=== PATIENT | male | born 1995 | race Caucasian/White ===

== ENCOUNTER 2019-03-28 13:50 | Emergency (ER) | payer BC ==
--- OUTSIDE RECORDS SUMMARY | 2019-03-28 14:02 | XMS REPORT | Continuity of Care Document ---
:1995 External Reference #:[id number] Author Name Jese Dee MD Address [facility] [place] [address] Care Team Providers Name Role Phone Neno Angela M.D. Care Team Information Manager Environmental Affairs [phone] Problems Active Problems Provider Date Chronic ulcerative pancolitis Jese Dee MD Onset: 08/12/2018 Social History Type Date Description Comments Sex Unknown Tobacco Use Start: Unknown Light tobacco smoker (10 or fewer cigarettes/day) Smoking Status Reviewed: 03/03/19 Light tobacco smoker (10 or fewer cigarettes/day) Allergies, Adverse Reactions, Alerts Description No Known Drug Allergies Medications Active Medications SIG Qnty Indications Ordering Date Provider Remicade 400mg iv every 8 Jese D. 03/03/2019 100mg weeks, please check MD Leila Solution Rec cbc, cmp every other infusion Prednisone 2 po q day x 3 days, QS Jese D. 03/03/2019 10mg then 1.5 po qday x 3 MD Leila Tablets days, then 1 po q day x 3 days, then 0.5 po qday x 3 days, then stop Ibu take 1 tablet by Unknown 800mg Tablets mouth three times a day if needed for pain maxim... (Refer To Prescription Notes). Budesonide 3 by mouth every day 270caps Jese D. 3mg Caps MD DR Ap Dee Mesalamine 2 by mouth twice a 360tabs Jese D. 1.2gm day MD Leila Tablets Advil PM Unknown 200-38mg Tablets Immunizations Description No Information Available Vital Signs Date Vital Result Comment 03/03/2019 2:01pm Height 69 inches 5'9" Weight 142.00 lb BP Systolic 123 mmHg BP Diastolic 74 mmHg Heart Rate 103 /min BMI (Body Mass Index) 21.0 kg/m2 08/12/2018 1:11pm Height 69 inches 5'9" Weight 153.00 lb BP Systolic 120 mmHg BP Diastolic 83 mmHg Heart Rate 100 /min BMI (Body Mass Index) 22.6 kg/m2 Results Test Date Facility Test Result H/L Range Note CBC Auto Diff 09/18/2018 [facility] [place] Blood Count 10.2 10^3/uL Normal 3.5- 10.8 Red Blood Count 4.36 10^6/uL Normal 4.18-5.48 Hemoglobin 12.0 g/dL Low 14.0-18.0 Hematocrit 36 % Low 42-52 Mean Corpuscular Volume 83 fL Normal 80-94 Mean Corpuscular Hemoglobin 28 pg Normal 27-31 Mean Corpuscular HGB Conc 33 g/dL Normal 31-36 Red Cell Distribution Width 17 % High 10.5-15 Platelet Count 317 10^3/uL Normal 150-450 Mean Platelet Volume 7.7 fL Normal 7.4-10.4 Abs Neutrophils 8.5 10^3/uL High 1.5-7.7 Abs Lymphocytes 1.3 10^3/uL Normal 1.0-4.8 Abs Monocytes 0.3 10^3/uL Normal 0-0.8 Abs Eosinophils 0.0 10^3/uL Normal 0-0.6 Abs Basophils 0.0 10^3/uL Normal 0-0.2 Abs Nucleated RBC 0.0 10^3/uL Granulocyte % 83.2 % Lymphocyte % 12.6 % Monocyte % 3.3 % Eosinophil % 0.5 % Basophil % 0.4 % Nucleated Red Blood Cells % 0.0 Comp Metabolic Panel 09/18/2018 [facility] [place] Sodium 136 mmol/L Normal 135-145 Potassium 4.2 mmol/L Normal 3.5-5.0 Chloride 103 mmol/L Normal 101-111 Co2 Carbon Dioxide 26 mmol/L Normal 22-32 Anion Gap 7 mmol/L Normal 2-11 Glucose 112 mg/dL High 70-100 Blood Urea Nitrogen 19 mg/dL Normal 6-24 Creatinine 0.85 mg/dL Normal 0.67-1.17 BUN/Creatinine Ratio 22.4 High 8-20 Calcium 9.6 mg/dL Normal 8.6-10.3 Total Protein 7.6 g/dL Normal 6.4-8.9 Albumin 4.5 g/dL Normal 3.2-5.2 Globulin 3.1 g/dL Normal 2-4 Albumin/Globulin Ratio 1.5 Normal 1-3 Total Bilirubin 0.60 mg/dL Normal 0.2-1.0 Alkaline Phosphatase 77 U/L Normal 34-104 Ast 15 U/L Normal 13-39 Egfr Non- 113.8 >60 Egfr 137.7 >60 1 Alt 13 U/L Normal 7-52 Laboratory test finding 09/18/2018 [facility] Reactive Protein 1.45 mg/L Normal <8.01 1 Because ethnic data is not always readily available, this report includes an eGFR for both -Americans and non- Americans. The National Kidney Disease Education Program (NKDEP) does not endorse the use of the MDRD equation for patients that are not between the ages of 18 and 70, are , have extremes of body size, muscle mass, or nutritional status, or are non- or non-. According to the National Kidney Foundation, irrespective of diagnosis, the stage of the disease is based on the level of kidney function: Stage Description GFR(mL/min/1.73 m(2)) 1 Kidney damage with normal or decreased GFR 90 2 Kidney damage with mild decrease in GFR 60-89 3 Moderate decrease in GFR 30-59 4 Severe decrease in GFR 15-29 5 Kidney failure <15 (or dialysis) Procedures Description No Information Available Medical Devices Description No Information Available Encounters Description No Information Available Assessments Date Code Description Provider 03/03/2019 K51.00 Ulcerative (chronic) pancolitis without Jese Dee MD complications Plan of Treatment 03/03/2019 - Jese Dee MDK51.00 Ulcerative (chronic) pancolitis without complicationsComments:I had a very long discussion with the patient regarding his ulcerative colitis. He is currently flaring on Remicade. He is on above maximum doses of 15 mg/kg every 7 weeks. I am concerned that he has developed antibodies to the Remicade and we need to switch to a different medication. He also remains on budesonide and mesalamine and despite this triple concoction he is flaring. At this point I am going to start him on a prednisone taper over the next couple of weeks. Additionally we had a discussion regarding switching to a different biologic 1 of the other antitumor necrosis factor antibodies, or Entyvio or Xeljanz. He would like to try to Entyvio. We will work on the prior authorization Functional Status Description No Information Available Mental Status Description No Information Available Referrals Description No Information Available
[2019-03-28] MEDS ORDERED: Ondansetron INJ* 2 MG/ML VIAL IV ONE (14:49)
[2019-03-28] MEDS ORDERED: Ketorolac INJ* 30 MG/ML 1 ML VIAL IV ONE (14:49)
[2019-03-28] MEDS ORDERED: NS 0.9% 1000 ML** 1,000 ML IV ONE (14:50)
[2019-03-28 15:17] LABS: ABS Basophils 0.1 10^3/ul (0-0.2); ABS Lymphocytes 1.2 10^3/ul (1.0-4.8); ABS Monocytes 0.8 10^3/ul (0-0.8); ABS Neutrophils 11.8 10^3/ul (1.5-7.7); Eosinophil % 0.2 %; Hematocrit 38 % (42-52); Hemoglobin 12.7 g/dL (14.0-18.0); Lymphocyte % 8.4 %; Mean Corpuscular HGB Conc 33 g/dL (31-36); Mean Corpuscular Hemoglobin 29 pg (27-31); Mean Corpuscular Volume 88 fL (80-94); Mean Platelet Volume 7.5 fL (7.4-10.4); Platelet Count 367 10^3/uL (150-450); Red Blood Count 4.37 10^6 /uL (4.18-5.48); Red Cell Distribution Width 15 % (10-15); White Blood Count 13.8 10^3/uL (3.5-10.8)
[2019-03-28 15:36] LABS: Albumin 4.3 g/dL (3.2-5.2); Albumin/Globulin Ratio 1.2 (1-3); C Reactive Protein 19.43 mg/L (<8.01); Calcium 9.8 mg/dL (8.6-10.3); EGFR African American 114.1 (>60); EGFR Non-African American 94.3 (>60); Globulin 3.7 g/dL (2-4); Potassium 3.1 mmol/L (3.5-5.0); Total Bilirubin 0.7 mg/dL (0.2-1.0)
[2019-03-28 16:11] LABS: Urine Appearance Clear; Urine Color Yellow
[2019-03-28 16:12] LABS: Urine Bilirubin Negative (Negative); Urine Blood 3+ (Negative); Urine Glucose Negative (Negative); Urine Ketones 1+ (Negative); Urine Nitrite Negative (Negative); Urine Protein 1+(30 mg/dL) (Negative); Urine Specific Gravity 1.005 (1.010-1.030); Urine Urobilinogen Negative (Negative)
[2019-03-28 16:15] LABS: Urine Bacteria 1+ (Absent); Urine Red Blood Cell 3+(>10/hpf) (Absent); Urine Squamous Epithelial Cell Present (Absent); Urine White Blood Cell 1+(6-10/hpf) (Absent)
[2019-03-28 16:52] VITALS: BP 104/67
--- NOTE | 2019-03-28 17:07 | ED ---
Abdominal Pain/Male - HPI Summary HPI Summary: This patient is a 23-year-old male presenting to the ED with L sided flank pain acute onset just 2 hours ago. Hx of kidney stone. - History of Current Complaint Chief Complaint: EDFlankPain Stated Complaint: POSS KIDNEY STONE/VOMITING BLOOD PER PT Time Seen by Provider: 03/28/19 14:27 Hx Obtained From: Patient Onset/Duration: Sudden Onset Timing: Constant Severity Initially: Severe Severity Currently: Severe Pain Intensity: 0 Pain Scale Used: 0-10 Numeric Location: Flank Radiates: Yes Radiates to: LLQ Character: Sharp, Cramping Aggravating Factor(s): Nothing Alleviating Factor(s): Nothing Associated Signs And Symptoms: Positive: Negative. Negative: Constipation, Blood in Stool, Urinary Symptoms, Decreased Appetite, Vomiting, Diarrhea, Penile Discharge - Risk Factors Testicular Torsion: Negative Cardiac Risk Factors: Negative - Allergies/Home Medications Allergies/Adverse Reactions: Allergies Allergy/AdvReac Type Severity Reaction Status Date / Time ENVIRONMENTAL Allergy SNEEZING Uncoded 03/28/19 13:55 AND COUGHING PMH/Surg Hx/FS Hx/Imm Hx Previously Healthy: Yes Endocrine/Hematology History: Reports: Hx Anemia - iron supplements Denies: Hx Diabetes Cardiovascular History: Denies: Hx Hypertension GI History: Reports: Hx Irritable Bowel - possible, Other GI Disorders - ulcerative colitis, diarrhea History: Denies: Hx Dialysis, Hx Renal Disease Musculoskeletal History: Denies: Hx Rheumatoid Arthritis, Hx Osteoporosis Sensory History: Reports: Hx Contacts or Glasses - GLASSES Denies: Hx Hearing Aid Opthamlomology History: Reports: Hx Contacts or Glasses - GLASSES Psychiatric History: Reports: Hx Attention Deficit Hyperactivity Disorder - Surgical History Surgery Procedure, Year, and Place: TUBES A CHILD-[place]. TONSILLECTOMY, [place]. 2013 colonoscopy, [facility] Hx Anesthesia Reactions: No - Immunization History Hx Pertussis Vaccination: No Immunizations Up to Date: Yes Infectious Disease History: No Infectious Disease History: Denies: Hx Clostridium Difficile, Hx Hepatitis, Hx Human Immunodeficiency Virus (HIV), Hx of Known/Suspected MRSA, Hx Shingles, Hx Tuberculosis, History Other Infectious Disease, Traveled Outside the [place] in Last 30 Days - Family History Known Family History: Positive: Other - Denies FHx malignant hyperthermia or anesthesia reaction - Social History Occupation: Employed Full-time Lives: With Family Alcohol Use: None Hx Substance Use: No Substance Use Type: Reports: None Substance Use Comment - Amount & Last Used: occassionally Hx Tobacco Use: Yes Smoking Status (MU): Current Some Day Smoker Type: eCigarettes Amount Used/How Often: 1-2 cig day Have You Smoked in the Last Year: Yes Review of Systems Negative: Fever, Chills, Fatigue, Skin Diaphoresis Negative: Palpitations, Chest Pain Negative: Shortness Of Breath, Cough Positive: Abdominal Pain - LLQ, Nausea. Negative: Vomiting, Diarrhea Genitourinary: Negative Positive: no symptoms reported, see HPI, flank pain - left flank Negative: Arthralgia, Myalgia Skin: Negative Neurological: Negative All Other Systems Reviewed And Are Negative: Yes Physical Exam Triage Information Reviewed: Yes Vital Signs On Initial Exam: Initial Vitals Temp Pulse Resp BP Pulse Ox 97.8 F 85 20 116/73 100 03/28/19 13:51 03/28/19 13:51 03/28/19 13:51 03/28/19 13:51 03/28/19 13:51 Vital Signs Reviewed: Yes Appearance: Positive: Well-Appearing, Well-Nourished Skin: Positive: Skin Color Reflects Adequate Perfusion Head/Face: Positive: Normal Head/Face Inspection Eyes: Positive: EOMI, ALDO, Conjunctiva Clear Neck: Positive: Supple, No Lymphadenopathy Respiratory/Lung Sounds: Positive: Clear to Auscultation, Breath Sounds Present Cardiovascular: Positive: RRR, Pulses are Symmetrical in both Upper and Lower Extremities Abdomen Description: Positive: CVA Tenderness (L) Bowel Sounds: Positive: Present Musculoskeletal: Positive: Strength/ROM Intact Neurological: Positive: Sensory/Motor Intact, Alert, Oriented to Person Place, Time, Speech Normal Psychiatric: Positive: Normal, Affect/Mood Appropriate AVPU Assessment: Alert Diagnostics - Vital Signs Vital Signs Temp Pulse Resp BP Pulse Ox 03/28/19 16:52 99.5 F 87 16 104/67 99 03/28/19 16:47 104/67 03/28/19 16:19 78 98 03/28/19 15:39 70 20 90/70 100 03/28/19 15:00 72 100 03/28/19 14:10 24 03/28/19 14:08 21 145/76 03/28/19 13:51 97.8 F 85 20 116/73 100 - Laboratory Lab Results: Lab Results 03/28/19 03/28/19 03/28/19 Range/Units 15:09 15:09 15:09 WBC 13.8 H (3.5-10.8) 10^3/uL RBC 4.37 (4.18-5.48) 10^6 /uL Hgb 12.7 L (14.0-18.0) g/dL Hct 38 L (42-52) % MCV 88 (80-94) fL MCH 29 (27-31) pg MCHC 33 (31-36) g/dL RDW 15 (10-15) % Plt Count 367 (150-450) 10^3/uL MPV 7.5 (7.4-10.4) fL Neut % (Auto) 85.2 % Lymph % (Auto) 8.4 % [place] % (Auto) 5.8 % Eos % (Auto) 0.2 % Baso % (Auto) 0.4 % Absolute Neuts (auto) 11.8 H (1.5-7.7) 10^3/ul Absolute Lymphs (auto) 1.2 (1.0-4.8) 10^3/ul Absolute Monos (auto) 0.8 (0-0.8) 10^3/ul Absolute Eos (auto) 0.0 (0-0.6) 10^3/ul Absolute Basos (auto) 0.1 (0-0.2) 10^3/ul Absolute Nucleated RBC 0.0 10^3/ul Nucleated RBC % 0.0 Sodium 137 (135-145) mmol/L Potassium 3.1 L (3.5-5.0) mmol/L Chloride 104 (101-111) mmol/L Carbon Dioxide 21 L (22-32) mmol/L Anion Gap 12 H (2-11) mmol/L BUN 14 (6-24) mg/dL Creatinine 1.00 (0.67-1.17) mg/dL Est GFR ( Amer) 114.1 (>60) Est GFR (Non-Af Amer) 94.3 (>60) BUN/Creatinine Ratio 14.0 (8-20) Glucose 85 (70-100) mg/dL Lactic Acid 2.3 H* (0.5-2.0) mmol/L Calcium 9.8 (8.6-10.3) mg/dL Total Bilirubin 0.70 (0.2-1.0) mg/dL AST 14 (13-39) U/L ALT 17 (7-52) U/L Alkaline Phosphatase 81 (34-104) U/L C-Reactive Protein 19.43 H (<8.01) mg/L Total Protein 8.0 (6.4-8.9) g/dL Albumin 4.3 (3.2-5.2) g/dL Globulin 3.7 (2-4) g/dL Albumin/Globulin Ratio 1.2 (1-3) Lipase 23 (11.0-82.0) U/L Urine Color Urine Appearance Urine pH (5-9) Ur Specific Garrett (1.010-1.030) Urine Protein (Negative) Urine Ketones (Negative) Urine Blood (Negative) Urine Nitrate (Negative) Urine Bilirubin (Negative) Urine Urobilinogen (Negative) Ur Leukocyte Esterase (Negative) Urine WBC (Auto) (Absent) Urine RBC (Auto) (Absent) Ur Squamous Epith Cells (Absent) Urine Bacteria (Absent) Urine Glucose (Negative) 03/28/19 Range/Units 15:58 WBC (3.5-10.8) 10^3/uL RBC (4.18-5.48) 10^6 /uL Hgb (14.0-18.0) g/dL Hct (42-52) % MCV (80-94) fL MCH (27-31) pg MCHC (31-36) g/dL RDW (10-15) % Plt Count (150-450) 10^3/uL MPV (7.4-10.4) fL Neut % (Auto) % Lymph % (Auto) % [place] % (Auto) % Eos % (Auto) % Baso % (Auto) % Absolute Neuts (auto) (1.5-7.7) 10^3/ul Absolute Lymphs (auto) (1.0-4.8) 10^3/ul Absolute Monos (auto) (0-0.8) 10^3/ul Absolute Eos (auto) (0-0.6) 10^3/ul Absolute Basos (auto) (0-0.2) 10^3/ul Absolute Nucleated RBC 10^3/ul Nucleated RBC % Sodium (135-145) mmol/L Potassium (3.5-5.0) mmol/L Chloride (101-111) mmol/L Carbon Dioxide (22-32) mmol/L Anion Gap (2-11) mmol/L BUN (6-24) mg/dL Creatinine (0.67-1.17) mg/dL Est GFR ( Amer) (>60) Est GFR (Non-Af Amer) (>60) BUN/Creatinine Ratio (8-20) Glucose (70-100) mg/dL Lactic Acid (0.5-2.0) mmol/L Calcium (8.6-10.3) mg/dL Total Bilirubin (0.2-1.0) mg/dL AST (13-39) U/L ALT (7-52) U/L Alkaline Phosphatase (34-104) U/L C-Reactive Protein (<8.01) mg/L Total Protein (6.4-8.9) g/dL Albumin (3.2-5.2) g/dL Globulin (2-4) g/dL Albumin/Globulin Ratio (1-3) Lipase (11.0-82.0) U/L Urine Color Yellow Urine Appearance Clear Urine pH 6 (5-9) Ur Specific Garrett 1.005 L (1.010-1.030) Urine Protein 1+(30 mg/dl) A (Negative) Urine Ketones 1+ A (Negative) Urine Blood 3+ A (Negative) Urine Nitrate Negative (Negative) Urine Bilirubin Negative (Negative) Urine Urobilinogen Negative (Negative) Ur Leukocyte Esterase 1+ A (Negative) Urine WBC (Auto) 1+(6-10/hpf) A (Absent) Urine RBC (Auto) 3+(>10/hpf) A (Absent) Ur Squamous Epith Cells Present A (Absent) Urine Bacteria 1+ A (Absent) Urine Glucose Negative (Negative) Result Diagrams: 03/28/19 15:09 03/28/19 15:09 Lab Statement: Any lab studies that have been ordered have been reviewed, and results considered in the medical decision making process. Abdominal Pain Male Course/Dx - Diagnoses Differential Diagnosis/HQI/PQRI: Ureteral Stone Provider Diagnoses: Kidney stone on left side Discharge ED - Discharge Plan Condition: Stable Disposition: HOME Prescriptions: Ondansetron ODT TAB* [Zofran 4 MG Odt TAB*] 4 mg PO Q6H PRN #12 tab.odt MDD 4 PRN Reason: Nausea Sulfamethox/Trimethoprim DS* [Bactrim DS 800/160 TAB*] 1 tab PO BID #6 tab MDD 2 traMADol TAB* [Ultram*] 50 mg PO Q8H PRN #6 tab MDD 3 PRN Reason: Pain Patient Education Materials: Kidney Stones (ED) Referrals: Lorenzo Carvajal MD [Medical Doctor] - Neno Angela MD [Primary Care Provider] - Additional Instructions: Strain your urine to assure you have passed the stone If you're not having pain, you have likely passed the stone Zofran has been given as prescription, use this 4 times daily as needed for nausea Bactrim twice daily x 3 days Tramadol as needed for pain - Billing Disposition and Condition Condition: STABLE Disposition: Home
== END 2019-03-28 16:52 | disposition home or self-care (01) ==
LOC: ED 13:50
DX: N13.2 Hydronephrosis with renal and ureteral calculous obstruction (principal); Z87.442 Personal history of urinary calculi; R11.0 Nausea; D64.9 Anemia, unspecified; Z72.0 Tobacco use
CPT/HCPCS: 36415; 74176; 80053; 81003; 81015; 83605; 83690; 85025; 86140; 87086; 96361; 96374; 96375; 99283; J1885; J2405

== ENCOUNTER 2023-07-20 15:46 | Inpatient (IN) ==
[2023-07-20 17:30] LABS: ALT 13 U/L (7-52); AST 16 U/L (13-39); Acetaminophen < 15 mcg/mL; Albumin 4.2 g/dL (3.2-5.2); Albumin/Globulin Ratio 1.2 (1-3); Alcohol, S < 13 mg/dL (<13); Alkaline Phosphatase 78 U/L (35-149); Anion Gap 9 mmol/L (2-16); Blood Urea Nitrogen 21 mg/dL (6-24); CO2 Carbon Dioxide 24 mmol/L (22-32); Calcium 8.9 mg/dL (8.6-10.3); Chloride 105 mmol/L (101-111); Globulin 3.5 g/dL (2-4); Glucose 74 mg/dL (70-100); Salicylate < 2.50 mg/dL (<30); Sodium 138 mmol/L (135-145); Total Bilirubin 0.6 mg/dL (0.2-1.0); Total Protein 7.7 g/dL (6.4-8.9); eGFR CKD-EPI 125.2 (>60)
[2023-07-20 17:40] LABS: ABS Monocytes 0.5 10^3/uL (0.0-1.1); ABS Neutrophils 3.4 10^3/uL (1.5-7.6); ABS Nucleated RBC 0.01 10^3/ul; Acanthocytes 1+; Eosinophil % 0.5 %; Hematocrit 31.8 % (38-53); Hemoglobin 10.3 g/dL (13.2-16.3); Hypochromasia 2+; Lymphocyte % 20.3 %; Mean Corpuscular Hgb Conc 32.3 g/dL (31-36); Mean Corpuscular Volume 74.3 fL (80-97); Mean Platelet Volume 6.7 fL (7.5-11.2); Microcytosis 2+; Nucleated Red Blood Cells % 0.2 %/100WBC (0.0-0.8); Platelet Count 520 10^3/uL (150-450); Red Blood Count 4.29 10^6/uL (4.06-5.63); Red Cell Distribution Width 25.7 % (12-17); Target Cells 1+; Tear Drop Cells 1+
[2023-07-20 17:44] LABS: TSH Ultra Thyroid Stim Horm 0.91 mcIU/mL (0.34-5.60)
[2023-07-20 19:24] LABS: Urine Appearance Extra Turbid; Urine Bilirubin Negative (Negative); Urine Blood 3+ (Negative); Urine Glucose Negative (Negative); Urine Ketones Negative (Negative); Urine Nitrite Negative (Negative); Urine Protein Trace (Negative); Urine Urobilinogen Negative (Negative)
[2023-07-20 19:27] LABS: Urine Bacteria 3+ /HPF (Absent); Urine Red Blood Cell 3+(>10/hpf) /HPF (0-Trace); Urine White Blood Cell 3+(>20/hpf) /HPF (0-Trace)
[2023-07-20 19:28] LABS: Urine Color Dark-Yellow
[2023-07-20 19:37] LABS: Urine Benzodiazepine Screen None Detected (None Detect); Urine Cannabinoids Screen None Detected (None Detect); Urine Opiates Screen None Detected (None Detect)
[2023-07-20] MEDS ORDERED: Al Hydrox/Mg Hydrox/Simet LIQ 30 ML UDC PO PRN (22:46)
[2023-07-21 07:26] LABS: Cholesterol 109 mg/dL; LDL Cholesterol 54 mg/dL; Triglycerides 118 mg/dL
[2023-07-21] MEDS: Vitamin THERAPEUTIC TAB PO SCH (08:59)
[2023-07-21 15:09] LABS: Ferritin 8.7 ng/mL (24-336)
[2023-07-21 15:39] LABS: % Iron Saturation 5 % (15-55); .Transferrin 291 mg/dL (203-362); Iron < 20 ug/dL (50-212); Total Iron Binding Capacity 407 mcg/dL (250-450); Unsaturated Iron Binding 387 ug/dL
[2023-07-21] MEDS: Nicotine GUM 2MG FRUIT FLAVOR PO PRN (20:17)
[2023-07-25] MEDS ORDERED: Lorazepam PYXIS KEY PRN (18:16)
[2023-07-25] MEDS ORDERED: chlorproMAZINE 25 MG/ML 2 ML (50 MG) IM ONE ×2 (18:16→19:00)
[2023-07-25] MEDS: chlorproMAZINE 25 MG/ML 2 ML (50 MG) IM ONE (18:27)
[2023-07-25] MEDS: LORazepam 2 mg VIAL 1 ml IM ONE (18:27)
[2023-07-25] MEDS: LORazepam 2 mg VIAL 1 ml ONE (18:54)
[2023-07-25] MEDS: chlorproMAZINE 25 MG/ML 2 ML (50 MG) ONE (19:38)
[2023-07-29 12:07] LABS: Vitamin D Total 25(OH) 15.2 ng/mL (20-50)
[2023-07-30 08:35] LABS: ABS Basophils 0.1 10^3/uL (0.0-0.1); ABS Eosinophils 0.1 10^3/uL (0.0-0.5); ABS Lymphocytes 1.4 10^3/uL (1.0-4.8); ABS Monocytes 0.6 10^3/uL (0.0-1.1); Eosinophil % 1.5 %; Hematocrit 31.3 % (38-53); Hemoglobin 10.3 g/dL (13.2-16.3); Lymphocyte % 17.2 %; Mean Corpuscular Hemoglobin 24.3 pg (27-33); Mean Corpuscular Hgb Conc 32.7 g/dL (31-36); Mean Corpuscular Volume 74.2 fL (80-97); Mean Platelet Volume 6.9 fL (7.5-11.2); Platelet Count 623 10^3/uL (150-450); Red Blood Count 4.22 10^6/uL (4.06-5.63); Red Cell Distribution Width 23.6 % (12-17); White Blood Count 8.2 10^3/uL (3.6-10.2)
[2023-08-02] MEDS ORDERED: Lactase Enzyme (NF) 3,000 UNIT TAB PO PRN ×2 (22:04→22:05)
[2023-08-05] MEDS ORDERED: OLANZapine IM (NF) 10 MG VIAL IM PRN (12:00)
[2023-08-05 13:51] LABS: ABS Eosinophils 0.1 10^3/uL (0.0-0.5); ABS Lymphocytes 1.2 10^3/uL (1.0-4.8); ABS Monocytes 0.3 10^3/uL (0.0-1.1); ABS Neutrophils 7.1 10^3/uL (1.5-7.6); Eosinophil % 0.8 %; Hematocrit 30.1 % (38-53); Hemoglobin 9.7 g/dL (13.2-16.3); Lymphocyte % 13.4 %; Mean Corpuscular Hgb Conc 32.4 g/dL (31-36); Mean Corpuscular Volume 73.9 fL (80-97); Mean Platelet Volume 6.6 fL (7.5-11.2); Platelet Count 634 10^3/uL (150-450); Red Blood Count 4.07 10^6/uL (4.06-5.63); Red Cell Distribution Width 23.2 % (12-17); White Blood Count 8.7 10^3/uL (3.6-10.2)
[2023-08-05 13:59] LABS: Albumin 3.9 g/dL (3.2-5.2); Albumin/Globulin Ratio 1.2 (1-3); Creatinine, Serum 0.76 mg/dL (0.67-1.17); Globulin 3.3 g/dL (2-4); Total Bilirubin 0.3 mg/dL (0.2-1.0); Total Protein 7.2 g/dL (6.4-8.9); eGFR CKD-EPI 127.1 (>60)
[2023-08-14 09:03] LABS: Albumin 3.7 g/dL (3.2-5.2); Albumin/Globulin Ratio 1.3 (1-3); CRP High Sensitivity 10.77 mg/L (<2.00); Creatinine, Serum 0.78 mg/dL (0.67-1.17); Globulin 2.9 g/dL (2-4); Potassium 4.7 mmol/L (3.5-5.0); Total Bilirubin 0.3 mg/dL (0.2-1.0); Total Protein 6.6 g/dL (6.4-8.9); eGFR CKD-EPI 126.1 (>60)
[2023-08-14 09:10] LABS: ABS Eosinophils 0.1 10^3/uL (0.0-0.5); ABS Monocytes 0.5 10^3/uL (0.0-1.1); ABS Neutrophils 3.9 10^3/uL (1.5-7.6); Eosinophil % 2.3 %; Hematocrit 27.9 % (38-53); Hemoglobin 9.2 g/dL (13.2-16.3); Lymphocyte % 18.2 %; Mean Corpuscular Hemoglobin 24.3 pg (27-33); Mean Corpuscular Volume 73.7 fL (80-97); Mean Platelet Volume 6.7 fL (7.5-11.2); Nucleated Red Blood Cells % 0.1 %/100WBC (0.0-0.8); Platelet Count 516 10^3/uL (150-450); Red Blood Count 3.79 10^6/uL (4.06-5.63); Red Cell Distribution Width 21.1 % (12-17); White Blood Count 5.6 10^3/uL (3.6-10.2)
[2023-08-15] MEDS: Lithium Carbonate ER 450mg TAB PO SCH (21:17)
[2023-08-16] MEDS: OLANZapine IM (NF) 10 MG VIAL IM ONE (09:48)
[2023-08-21 07:59] LABS: ABS Basophils 0.1 10^3/uL (0.0-0.1); ABS Eosinophils 0.2 10^3/uL (0.0-0.5); ABS Lymphocytes 1.3 10^3/uL (1.0-4.8); ABS Monocytes 0.7 10^3/uL (0.0-1.1); ABS Neutrophils 6.4 10^3/uL (1.5-7.6); Eosinophil % 2.4 %; Hemoglobin 9.6 g/dL (13.2-16.3); Lymphocyte % 14.8 %; Mean Corpuscular Hemoglobin 24.2 pg (27-33); Mean Corpuscular Volume 75.6 fL (80-97); Mean Platelet Volume 6.6 fL (7.5-11.2); Platelet Count 454 10^3/uL (150-450); Red Blood Count 3.96 10^6/uL (4.06-5.63); Red Cell Distribution Width 21.6 % (12-17); White Blood Count 8.7 10^3/uL (3.6-10.2)
[2023-08-21 08:51] LABS: Albumin 3.8 g/dL (3.2-5.2); Albumin/Globulin Ratio 1.3 (1-3); Calcium 8.7 mg/dL (8.6-10.3); Creatinine, Serum 0.83 mg/dL (0.67-1.17); Lithium 0.41 mmol/L (0.6-1.2); Potassium 4.9 mmol/L (3.5-5.0); Total Bilirubin 0.3 mg/dL (0.2-1.0); Total Protein 6.8 g/dL (6.4-8.9); eGFR CKD-EPI 123.8 (>60)
[2023-08-21 10:55] VITALS: BP 120/66
[2023-08-21] MEDS: Lithium Carbonate ER 450mg TAB PO SCH (19:10)
== END 2023-08-22 14:45 | disposition home or self-care (01) | DRG 753 ==
LOC: ED 15:46 → EDHOLD 21:45 → BSU 07-21 09:18
PROVIDERS: ADMIT Psychiatry & Neurology Psychiatry; ATTEND Psychiatry & Neurology Psychiatry

== ENCOUNTER 2023-11-09 21:48 | Inpatient (IN) ==
[2023-11-09] MEDS ORDERED: Lorazepam PYXIS KEY PRN (22:05)
[2023-11-09] MEDS: LORazepam 2 mg VIAL 1 ml IM ONE (22:22)
[2023-11-09] MEDS: Haloperidol 5 mg/ml SDV IV/IM 5 MG/ML AMP IM ONE (22:22)
[2023-11-09 22:42] LABS: ABS Basophils 0.1 10^3/uL (0.0-0.1); ABS Eosinophils 0.1 10^3/uL (0.0-0.5); ABS Lymphocytes 1.2 10^3/uL (1.0-4.8); ABS Monocytes 0.5 10^3/uL (0.0-1.1); ABS Neutrophils 6.6 10^3/uL (1.5-7.6); ABS Nucleated RBC 0.01 10^3/ul; Eosinophil % 1.6 %; Hematocrit 29.4 % (38-53); Hemoglobin 9.1 g/dL (13.2-16.3); Mean Corpuscular Hemoglobin 23.3 pg (27-33); Mean Corpuscular Hgb Conc 30.9 g/dL (31-36); Mean Corpuscular Volume 75.2 fL (80-97); Mean Platelet Volume 7.1 fL (7.5-11.2); Nucleated Red Blood Cells % 0.1 %/100WBC (0.0-0.8); Platelet Count 345 10^3/uL (150-450); Red Blood Count 3.91 10^6/uL (4.06-5.63); Red Cell Distribution Width 17.6 % (12-17); White Blood Count 8.5 10^3/uL (3.6-10.2)
[2023-11-09 23:01] LABS: Albumin 4.4 g/dL (3.2-5.2); Albumin/Globulin Ratio 1.3 (1-3); Calcium 9.3 mg/dL (8.6-10.3); Creatinine, Serum 1.04 mg/dL (0.67-1.17); Globulin 3.5 g/dL (2-4); Lithium 0.46 mmol/L (0.6-1.2); Potassium 4.1 mmol/L (3.5-5.0); Total Bilirubin 1.1 mg/dL (0.2-1.0); Total Protein 7.9 g/dL (6.4-8.9); eGFR CKD-EPI 101.6 (>60)
[2023-11-10] MEDS ORDERED: Al Hydrox/Mg Hydrox/Simet LIQ 30 ML UDC PO PRN (09:09)
[2023-11-10] MEDS: Nicotine GUM 4MG FRUIT FLAVOR PO PRN (12:46)
[2023-11-10] MEDS: Lithium Carbonate ER 450mg TAB PO SCH (14:28)
[2023-11-11] MEDS: OLANZapine 10 mg TAB*ODT PO ONE (20:00)
[2023-11-11] MEDS: OLANZapine 10 mg TAB*ODT ONE (20:34)
[2023-11-12] MEDS: OLANZapine 10 mg TAB*ODT PO PRN (14:11)
[2023-11-17 09:30] VITALS: BP 117/76
== END 2023-11-17 17:21 | disposition home or self-care (01) | DRG 750 ==
LOC: ED 21:48 → EDHOLD 11-10 09:09 → BSU 11-10 10:50
PROVIDERS: ADMIT Psychiatry & Neurology Psychiatry; ATTEND Psychiatry & Neurology Psychiatry

== ENCOUNTER 2023-11-29 13:57 | Inpatient (IN) ==
[2023-11-29] MEDS: Lactated Ringers 1000 ml BAG 1,000 ML IV ONE (14:29)
[2023-11-29] MEDS: Ondansetron 4 mg VIAL 2 MG/ML 2 ml VIAL IV ONE (14:31)
[2023-11-29] MEDS: NS 0.9% 1000 ml BAG 1,000 ML IV ONE (14:31)
[2023-11-29 15:04] LABS: ABS Eosinophils 0.1 10^3/uL (0.0-0.5); ABS Monocytes 0.6 10^3/uL (0.0-1.1); ABS Neutrophils 8.5 10^3/uL (1.5-7.6); Eosinophil % 0.8 %; Hematocrit 36.2 % (38-53); Hemoglobin 11.6 g/dL (13.2-16.3); Lymphocyte % 9.5 %; Mean Corpuscular Hemoglobin 23.9 pg (27-33); Mean Corpuscular Hgb Conc 32.2 g/dL (31-36); Mean Corpuscular Volume 74.3 fL (80-97); Platelet Count 512 10^3/uL (150-450); Red Blood Count 4.87 10^6/uL (4.06-5.63); Red Cell Distribution Width 18.7 % (12-17); White Blood Count 10.2 10^3/uL (3.6-10.2)
[2023-11-29 15:21] LABS: ALT 9 U/L (7-52); AST 14 U/L (13-39); Albumin 4.7 g/dL (3.2-5.2); Albumin/Globulin Ratio 1.3 (1-3); Alkaline Phosphatase 108 U/L (35-149); Anion Gap 7 mmol/L (2-16); Blood Urea Nitrogen 9 mg/dL (6-24); CO2 Carbon Dioxide 25 mmol/L (22-32); Chloride 105 mmol/L (101-111); Creatine Kinase 41 U/L (10-223); Creatinine, Serum 0.93 mg/dL (0.67-1.17); Globulin 3.5 g/dL (2-4); Glucose 97 mg/dL (70-100); Potassium 4.2 mmol/L (3.5-5.0); Sodium 137 mmol/L (135-145); Total Bilirubin 0.7 mg/dL (0.2-1.0); Total Protein 8.2 g/dL (6.4-8.9); eGFR CKD-EPI 116.1 (>60)
[2023-11-29 15:24] LABS: Acetaminophen < 15 mcg/mL; Alcohol, S < 13 mg/dL (<13); Lithium 1.92 mmol/L (0.6-1.2); Salicylate < 2.50 mg/dL (<30)
[2023-11-29 15:31] LABS: TSH Ultra Thyroid Stim Horm 1.49 mcIU/mL (0.34-5.60)
[2023-11-29] MEDS: NS 0.9% 1000 ml BAG 1,000 ML IV SCH ×2 (15:54→23:34)
[2023-11-29 17:27] LABS: Urine Appearance Clear; Urine Bilirubin Negative (Negative); Urine Blood Negative (Negative); Urine Color Light-Yellow; Urine Glucose Negative (Negative); Urine Ketones Negative (Negative); Urine Nitrite Negative (Negative); Urine Protein Negative (Negative); Urine Specific Gravity 1.013 (1.002-1.030); Urine Urobilinogen Negative (Negative)
[2023-11-29 17:37] LABS: Urine Benzodiazepine Screen None Detected (None Detect); Urine Cannabinoids Screen Presumptive Positive (None Detect); Urine Opiates Screen None Detected (None Detect)
[2023-11-30] MEDS: NS 0.9% 1000 ml BAG 500 ML IV ONE (03:16)
[2023-11-30 05:47] LABS: Lithium 2.48 mmol/L (0.6-1.2)
[2023-11-30 08:13] LABS: Calcium 8.6 mg/dL (8.6-10.3); Creatinine, Serum 0.9 mg/dL (0.67-1.17); Potassium 3.6 mmol/L (3.5-5.0); eGFR CKD-EPI 120.8 (>60)
[2023-11-30] MEDS ORDERED: Al Hydrox/Mg Hydrox/Simet LIQ 30 ML UDC PO PRN (23:12)
[2023-12-01 00:50] VITALS: BP 109/71
[2023-12-01] MEDS ORDERED: Vitamin THERAPEUTIC TAB PO SCH (09:00)
[2023-12-01] MEDS ORDERED: Nicotine PATCH 21 MG/24 HR PATCH TRANSDERM SCH (09:00)
== END 2023-12-01 00:41 | DRG 816 ==
LOC: ED 13:57 → EDHOLD 13:57 → SUATTDRO 21:58 → OBSVTOIN 21:58 → INTOOBSV 21:58 → EDHOLD 11-30 23:41
PROVIDERS: ADMIT Internal Medicine; ATTEND Internal Medicine

== ENCOUNTER 2023-11-30 22:50 | Inpatient (IN) ==
[2023-12-01] MEDS ORDERED: Al Hydrox/Mg Hydrox/Simet LIQ 30 ML UDC PO PRN (01:40)
[2023-12-01] MEDS: OLANZapine 5 mg TAB *ODT PO ONE (01:45)
[2023-12-01] MEDS: OLANZapine 5 mg TAB *ODT ONE (02:27)
[2023-12-01] MEDS: Nicotine PATCH 21 MG/24 HR PATCH TRANSDERM SCH (09:00)
[2023-12-01] MEDS ORDERED: COVID VAC 23-24(12+)(Moderna) SYR 0.5 ML IM ONE (09:00)
[2023-12-01] MEDS: Vitamin THERAPEUTIC TAB PO SCH (09:24)
[2023-12-01] MEDS: Lithium Carbonate ER 450mg TAB PO SCH (20:29)
[2023-12-04] MEDS: Cholecalciferol (VIT D3) 1,000 unit TAB PO SCH (12:31)
[2023-12-12 11:05] LABS: HDL Cholesterol 47.3 mg/dL
[2023-12-18] MEDS: Lithium Carbonate ER 450mg TAB PO SCH (19:43)
[2023-12-23 10:11] VITALS: BP 123/80
== END 2023-12-24 08:52 | disposition home or self-care (01) | DRG 750 ==
LOC: BSU 12-01 01:36
PROVIDERS: ADMIT Psychiatry & Neurology Psychiatry; ATTEND Psychiatry & Neurology Psychiatry